=== PATIENT | female | born 1950 | race Caucasian/White ===

== ENCOUNTER → 2016-10-02 | Outpatient (CLI) | payer OTHER ==
[~2016-10-02] MED LIST: AMB5 PO; ATOR-22 PO; FAMO20TA12 PO; GADAVIST IV PRN
--- NOTE | 2016-10-02 08:51 | DIAGNOSTIC IMAGING REPORT ---
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 COMPARISON STUDY: MRI of the brain dated 07/27/2016. TECHNIQUE: MRI of the brain was performed utilizing various T1 and T2-weighted sequences in the axial, sagittal, and coronal planes. Contrast-enhanced sequences were acquired following the administration of 9 cc of Gadavist. FINDINGS: Brain parenchyma: There are age-related involutional changes noting mild patchy subcortical and periventricular microangiopathic disease. There is left parietal encephalomalacia, likely on a postoperative basis. This is similar to previous. There is no hemorrhage or mass effect. There is no restricted diffusion to suggest acute ischemia. No enhancing mass lesion is identified on the postcontrast images. The enhancing lesions seen within the cerebellum and the ventricles on 07/27/2016 have resolved. A small chronic lacunar infarct is noted in the right cerebellar hemisphere. No extra-axial fluid collection is seen. The cerebellar tonsils are normal in configuration. Ventricles, sulci, and cisterns: Prominent secondary to involutional change. Pituitary and sella: Unremarkable. Intracranial vasculature: Normal flow voids are maintained at the skull base. Orbits: The bony orbits are grossly intact. Orbital contents are normal in appearance. Sinuses and mastoids: A small retention cyst is noted in the right maxillary antrum. The paranasal sinuses are otherwise clear. The mastoid air cells are well pneumatized. Calvarium: There are changes from left-sided craniotomy. No destructive calvarial lesion is seen. Cervical cord: Partially visualized cervical spinal cord is normal in morphology and signal intensity. IMPRESSION: 1. Positive response to treatment. The enhancing lesions seen on 07/27/2016 have resolved. No enhancing intracranial mass is identified on today's examination. 2. Stable postoperative change in the left parietal lobe as compared to prior studies. 3. There is no hemorrhage or evidence of acute ischemia. Electronically signed by: Azeem Zhang M.D. 10/02/2016 8:50 AM Dictated Date/Time: 10/02/2016 8:42 AM
== END | disposition home or self-care (01) ==
LOC: C.MRI 07:26
PROVIDERS: ATTEND Internal Medicine Hematology
DX: C85.89 Other specified types of non-Hodgkin lymphoma, extranodal and solid organ sites (principal)

== ENCOUNTER → 2017-01-29 | Outpatient (CLI) | payer OTHER ==
--- NOTE | 2017-01-29 10:30 | DIAGNOSTIC IMAGING REPORT ---
MRI OF THE BRAIN COMBO CLINICAL HISTORY: Lymphoma. History of brain surgery. COMPARISON STUDY: MRI of the brain dated 10/02/2016. TECHNIQUE: MRI of the brain was performed utilizing various T1 and T2-weighted sequences in the axial, sagittal, and coronal planes. Contrast-enhanced sequences were acquired following the administration of 9 cc of Gadavist. FINDINGS: Brain parenchyma: There are age-related involutional changes noting mild patchy subcortical and periventricular microangiopathic disease. There is left parietal encephalomalacia, likely on a postoperative basis. This is similar to previous. There is no hemorrhage or mass effect. There is no restricted diffusion to suggest acute ischemia. No enhancing mass lesion is identified on the postcontrast images. A small chronic lacunar infarct is noted in the right cerebellar hemisphere. No extra-axial fluid collection is seen. The cerebellar tonsils are normal in configuration. Ventricles, sulci, and cisterns: Prominent secondary to involutional change. Pituitary and sella: Unremarkable. Intracranial vasculature: Normal flow voids are maintained at the skull base. Orbits: The bony orbits are grossly intact. Orbital contents are normal in appearance. Sinuses and mastoids: A small retention cyst is again noted in the right maxillary antrum. The paranasal sinuses are otherwise clear. The mastoid air cells are well pneumatized. Calvarium: There are changes from left-sided craniotomy. No destructive calvarial lesion is seen. Cervical cord: Partially visualized cervical spinal cord is normal in morphology and signal intensity. IMPRESSION: 1. No enhancing intracranial mass is identified on today's examination and there has been no significant change from 10/02/2016. 2. Stable postoperative change in the left parietal lobe as compared to prior studies. 3. There is no hemorrhage or evidence of acute ischemia. Electronically signed by: Azeem Zhang M.D. 01/29/2017 10:29 AM Dictated Date/Time: 01/29/2017 10:25 AM
== END | disposition home or self-care (01) ==
LOC: C.MRI 09:23
PROVIDERS: ATTEND Internal Medicine Hematology
DX: C85.89 Other specified types of non-Hodgkin lymphoma, extranodal and solid organ sites (principal)

== ENCOUNTER → 2017-02-08 | Outpatient (CLI) | payer OTHER ==
[~2017-02-08] MED LIST changes: -GADAVIST IV PRN
--- NOTE | 2017-02-08 13:49 | MAMMOGRAPHY REPORT ---
BILATERAL DIGITAL SCREENING MAMMOGRAM WITH CAD: 02/08/2017 CLINICAL HISTORY: Routine screening. Patient has no complaints. TECHNIQUE: Current study was also evaluated with a Computer Aided Detection (CAD) system. Bilateral CC and MLO views were obtained. COMPARISON: Comparison is made to exams dated: 02/08/2016 mammogram, 02/04/2015 mammogram, 01/21/2014 lety mogram, 01/20/2013 mammogram, 01/18/2012 mammogram, and 01/17/2011 mammogram - [facility]. BREAST COMPOSITION: There are scattered areas of fibroglandular density in both breasts. FINDINGS: No suspicious masses, calcifications, or areas of architectural distortion are noted in ei ther breast. There has been no significant interval change compared to prior exams. IMPRESSION: ACR BI-RADS CATEGORY 1: NEGATIVE There is no mammographic evidence of malignancy. A 1 year screening mammogram is recommended. The pa tient will receive written notification of the results. Approximately 10% of breast cancers are not detected with mammography. A negative mammographic report should not delay biopsy if a clinically suggestive mass is present. Helena Elkins M.D. /:02/08/2017 10:44:32 Preforming Machine Operator: Narda CAMPOVERDE(Maryann)(Michel)(BD), [facility] letter sent: Normal 1/2 BI-RADS Code: ACR BI-RADS Category 1: Negative
== END | disposition home or self-care (01) ==
LOC: C.MAMM 09:39
PROVIDERS: ATTEND Internal Medicine
DX: Z12.31 Encounter for screening mammogram for malignant neoplasm of breast (principal)

== ENCOUNTER → 2017-03-07 | Outpatient (CLI) | payer OTHER ==
[2017-03-07 13:21] LABS: HEMATOCRIT 37.8 % (37-47); MEAN CELL VOLUME 100.5 fL (80-100); MEAN CORPUSCULAR HEMOGLOBIN 33.5 pg (25-34); MEAN CORPUSCULAR HGB CONC 33.3 g/dl (32-36); MEAN PLATELET VOLUME 11.3 fL (7.4-10.4); PLATELET COUNT 249 K/uL (130-400); RED BLOOD COUNT 3.76 M/uL (4.2-5.4); WHITE BLOOD COUNT 3.89 K/uL (4.8-10.8)
[2017-03-07 13:23] LABS: BASO % 0.5 %; BASO ABS # 0.02 K/uL (0-0.2); COMPLETE YES; EOS % 3.6 %; IG% 0.3 %; LYMPH % 14.7 %; LYMPH ABS # 0.57 K/uL (1.2-3.4); MONO % 11.3 %; NEUT % 69.6 %
[2017-03-07 13:33] LABS: BLOOD UREA NITROGEN 12 mg/dl (7-18); GLUCOSE 100 mg/dl (70-99)
[2017-03-07 13:34] LABS: ALT/SGPT 16 U/L (12-78); AST/SGOT 19 U/L (15-37); BUN/CREATININE RATIO 13.3 (10-20); CALCIUM 9.4 mg/dl (8.5-10.1); CARBON DIOXIDE 27 mmol/L (21-32); CHLORIDE 108 mmol/L (98-107); CREATININE 0.91 mg/dl (0.60-1.20); HDL CHOLESTEROL 63 mg/dl; POTASSIUM 3.9 mmol/L (3.5-5.1); SODIUM 142 mmol/L (136-145)
[2017-03-07 13:36] LABS: ALB/GLOB RATIO 1.3 (0.9-2); ALKALINE PHOSPHATASE 120 U/L (45-117); CHOLESTEROL 163 mg/dl (0-200); CHOLESTEROL/HDL RATIO 2.6; TRIGLYCERIDES 127 mg/dl (0-150); VERY LOW DENSITY LIPOPROT CALC 25 mg/dl
== END | disposition home or self-care (01) ==
LOC: C.LABSPEC 12:39
PROVIDERS: ATTEND Internal Medicine
DX: Z00.00 Encounter for general adult medical examination without abnormal findings (principal); C85.89 Other specified types of non-Hodgkin lymphoma, extranodal and solid organ sites; E78.5 Hyperlipidemia, unspecified

== ENCOUNTER → 2017-05-23 | Outpatient (CLI) | payer OTHER ==
[2017-05-23 13:24] LABS: HEMATOCRIT 37.4 % (37-47); MEAN CORPUSCULAR HEMOGLOBIN 33.6 pg (25-34); MEAN CORPUSCULAR HGB CONC 32.6 g/dl (32-36); MEAN PLATELET VOLUME 10.4 fL (7.4-10.4); PLATELET COUNT 275 K/uL (130-400); RED BLOOD COUNT 3.63 M/uL (4.2-5.4); WHITE BLOOD COUNT 4.07 K/uL (4.8-10.8)
[2017-05-23 13:37] LABS: BASO % 0.2 %; BASO ABS # 0.01 K/uL (0-0.2); COMPLETE YES; EOS % 3.4 %; LYMPH % 15.2 %; LYMPH ABS # 0.62 K/uL (1.2-3.4); MONO % 8.6 %; NEUT % 72.6 %
== END | disposition home or self-care (01) ==
LOC: C.LABSPEC 12:21
PROVIDERS: ATTEND Internal Medicine
DX: C85.89 Other specified types of non-Hodgkin lymphoma, extranodal and solid organ sites (principal)

== ENCOUNTER → 2017-06-04 | Outpatient (CLI) | payer OTHER ==
[~2017-06-04] MED LIST changes: +GADAVIST IV PRN
--- NOTE | 2017-06-04 11:51 | DIAGNOSTIC IMAGING REPORT ---
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 Following the IV administration of 9 mL of Gadavist contrast, additional enhanced images were obtained. FINDINGS: Sagittal T1, axial diffusion, proton density and T2 weighted axial, coronal FLAIR, and pre and post axial T1-weighted images were acquired. These were supplemented with post gadolinium coronal T1 weighted images. There is a new enhancing 9 mm periventricular left occipital nodule. This must be viewed as suspicious for recurrent lymphoma. No additional enhancing lesions are visualized. Axial diffusion-weighted images reveal no evidence of acute or subacute infarction. There is no evidence of ventricular dilatation. Proton density T2-weighted and FLAIR images reveal moderate white matter edema within the left parietal lobe, in the area of prior surgery, and unchanged from the preceding examination. There is new vasogenic edema adjacent to the left periventricular occipital mass. There are scattered foci of increased T2 signal within the white matter likely a small vessel basis. This includes a lesion within the right medial occipital lobe. There are no abnormal flow voids. IMPRESSION: 1. New intensely enhancing 9 mm left occipital periventricular nodule with extensive surrounding vasogenic edema. This finding is viewed as suspicious for recurrent lymphoma. Electronically signed by: Damion Murillo M.D. 06/04/2017 11:50 AM Dictated Date/Time: 06/04/2017 11:42 AM
== END | disposition home or self-care (01) ==
LOC: C.MRI 10:03
PROVIDERS: ATTEND Internal Medicine Hematology
DX: C85.89 Other specified types of non-Hodgkin lymphoma, extranodal and solid organ sites (principal); G93.9 Disorder of brain, unspecified

== ENCOUNTER → 2017-09-10 | Outpatient (CLI) | payer OTHER ==
--- NOTE | 2017-09-10 09:38 | DIAGNOSTIC IMAGING REPORT ---
BRAIN COMBO CLINICAL HISTORY: PRIMARY CERAMIC PAINTER LYMPHOMA lymphoma COMPARISON STUDY: 06/04/2017 TECHNIQUE: Utilizing a 1.5 Mary Beth magnet and dedicated coil, multiplanar, multiecho imaging of the brain was performed pre and postcontrast administration. IV administration of 8.5 mL of Gadavist contrast was uneventful. FINDINGS: Mixed findings compared to the prior study. Enhancing left occipital nodule previous described has resolved. This running vasogenic edema has also resolved. There is interval development of a medial left temporal enhancing lesion measuring 11 x 7 mm. Immediately surrounding 3 mm nodular density is identified. Considerable localized vasogenic edema.. Chronic left parietal deep white matter edema unchanged from the prior study. No abnormal postcontrast enhancement at this site. There is a small focus of vasogenic edema medial right temporal lobe similar to slightly diminished as compared to the prior exam. IMPRESSION: 1. Mixed findings compared to the prior study. 2. Interval development of an enhancing left temporal lobe nodule measuring 11 x 7 mm. Considerable localized surrounding vasogenic edema.. 3. Interval resolution of the left occipital lesion 4. Chronic vasogenic edema medial right temporal lobe and left superior parietal lobe. The above report was generated using voice recognition software. It may contain grammatical, syntax or spelling errors. Electronically signed by: Damon Fontana M.D. 09/10/2017 9:37 AM Dictated Date/Time: 09/10/2017 9:22 AM
== END | disposition home or self-care (01) ==
LOC: C.MRI 08:34
PROVIDERS: ATTEND Internal Medicine Hematology
DX: C85.89 Other specified types of non-Hodgkin lymphoma, extranodal and solid organ sites (principal); G93.89 Other specified disorders of brain; G93.6 Cerebral edema

== ENCOUNTER → 2017-11-13 | Outpatient (CLI) | payer OTHER ==
[~2017-11-13] MED LIST changes: -AMB5 PO; +FAMO20TA11 PO; -FAMO20TA12 PO; -GADAVIST IV PRN; +LYR50 PO; +ONDA-170 PO; +SULF800T23 PO; +TEMO1CAP4 PO; +VALA500T60 PO
[2017-11-13 14:10] LABS: BASO % 0.2 %; BASO ABS # 0.01 K/uL (0-0.2); EOS % 0.9 %; EOS ABS # 0.04 K/uL (0-0.5); HEMATOCRIT 38.8 % (37-47); HEMOGLOBIN 12.9 g/dL (12.0-16.0); LYMPH % 15.8 %; LYMPH ABS # 0.71 K/uL (1.2-3.4); MEAN CELL VOLUME 105.1 fL (80-100); MEAN CORPUSCULAR HGB CONC 33.2 g/dl (32-36); MEAN PLATELET VOLUME 10.8 fL (7.4-10.4); MONO % 12.7 %; MONO ABS # 0.57 K/uL (0.11-0.59); NEUT % 70.4 %; NEUT ABS # 3.17 K/uL (1.4-6.5); PLATELET COUNT 266 K/uL (130-400); RED CELL DISTRIBUTION WIDTH CV 14.8 % (11.5-14.5); RED CELL DISTRIBUTION WIDTH SD 57.6 fL (36.4-46.3)
== END | disposition home or self-care (01) ==
LOC: C.LABSPEC 12:48
PROVIDERS: ATTEND Internal Medicine
DX: C85.89 Other specified types of non-Hodgkin lymphoma, extranodal and solid organ sites (principal)

== ENCOUNTER → 2017-11-13 | Outpatient (CLI) | payer OTHER ==
[~2017-11-13] MED LIST changes: +OPTIRAY 320 IV PRN
--- NOTE | 2017-11-13 15:59 | DIAGNOSTIC IMAGING REPORT ---
ABD/PELVIS IV AND ORAL CONT CLINICAL HISTORY: 67 years-old Female presenting with left lower quadrant pain, R/O DIVERTICULITIS. TECHNIQUE: Multidetector CT of the abdomen and pelvis was performed after the administration of oral and intravenous contrast. IV contrast: 93 mL of Optiray 320. A dose lowering technique was used consistent with the principles of ALARA (as low as reasonably achievable). COMPARISON: 10/01/2015. CT DOSE (mGy.cm): The estimated cumulative dose is 1078.85 mGycm. FINDINGS: Cutter Operator Tile topogram: Unremarkable. Lung bases: Lungs and pleural spaces clear. Normal heart size. No pericardial or pleural effusion. Fat-containing left Bochdalek hernias. Liver: Mildly macronodular contour of the liver with increased fat within the gallbladder fossa and fissure for the ligamentum teres. This could suggest a developing cirrhotic morphology. No focal lesion. Patent hepatic vasculature. Accessory right middle hepatic vein noted. Biliary: No intrahepatic or extrahepatic biliary ductal dilatation. Normal gallbladder. Pancreas: Mild prominence of the pancreatic duct with evidence of pancreas divisum. Mild parenchymal atrophy. Spleen: Normal. Adrenal glands: Normal. Kidneys and ureters: Numerous well-defined hypodensities in the kidneys, one of which demonstrates peripheral thin mural calcification in the right kidney. This minimally complex cyst measures 4.6 cm in diameter. The remainder of the cysts appear largely simple though a minimally complex cyst may also be present in the left kidney (series 3 image 149), measuring 5.4 cm. No hydronephrosis. Nonobstructing punctate calculus at the lower pole of the right kidney. Ureters normal. Bladder: Normal. Pelvic organs: Uterus surgically absent. Bowel: Diverticulosis of the sigmoid colon. No pericolonic fat infiltration. The appendix is normal. No bowel obstruction. Peritoneal cavity: No free fluid or intraperitoneal gas. Lymph nodes: No enlarged lymph nodes in the abdomen or pelvis. Vasculature: Atherosclerosis of the normal caliber abdominal aorta. IVC patent. Abdominal wall: Diastasis of the rectus abdominis. Musculoskeletal: Normal. IMPRESSION: 1. Diverticulosis without evidence of acute diverticulitis. No acute intra-abdominal pathology. 2. 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 No solid renal neoplasm or hemorrhagic or proteinaceous cyst. 3. Nonobstructing punctate right renal calculus. No hydronephrosis. 4. Macronodular contour of the liver with a morphology that could suggest developing fibrosis/cirrhosis. Electronically signed by: Grover Mederos M.D. 11/13/2017 3:58 PM Dictated Date/Time: 11/13/2017 3:51 PM
== END | disposition home or self-care (01) ==
LOC: C.CTS 13:39
PROVIDERS: ATTEND Internal Medicine
DX: R10.32 Left lower quadrant pain (principal); K11.7 Disturbances of salivary secretion; Q61.3 Polycystic kidney, unspecified; N20.0 Calculus of kidney; K76.89 Other specified diseases of liver

== ENCOUNTER → 2017-12-12 | Outpatient (CLI) | payer OTHER ==
[~2017-12-12] MED LIST changes: +GADAVIST IV PRN; -OPTIRAY 320 IV PRN
--- NOTE | 2017-12-12 13:02 | DIAGNOSTIC IMAGING REPORT ---
MRI OF THE BRAIN WITHOUT AND WITH IV CONTRAST CLINICAL HISTORY: INDUSTRIAL GAS FITTER LYMPHOMA RIGHT HAND NUMBNESS COMPARISON STUDY: 09/10/2017 TECHNIQUE: MRI of the brain was performed from the vertex to the skull base utilizing various T1 and T2 weighted sequences. Following the IV administration of 9.3 mL of Gadavist contrast, additional enhanced images were obtained. FINDINGS: Postsurgical changes are present within the left parietal lobe. There is persistent extensive white matter edema within the left parietal lobe unchanged from the preceding study. The previously identified left temporal white matter edema has resolved. There is a persistent 7 mm focus of white matter edema within the right temporal lobe. Axial diffusion-weighted images reveal no evidence of acute or subacute infarction. There is no evidence of ventricular dilatation. Proton density T2-weighted and FLAIR images reveal scattered foci of increased T2 signal within the white matter, likely on a small vessel basis, in addition to the above-mentioned areas of white matter edema. There are no abnormal flow voids. 11 mm focus of enhancement within the left temporal lobe is no longer evident. Equivocal foci of enhancement involving the anterior inferior aspect of the right cerebellum, likely represents partial volume averaging artifact. This is not confirmed on axial images. There is no pathologic T2 or FLAIR signal in this region. IMPRESSION: 1. Interval resolution of the left temporal lobe enhancing mass with resolution of the surrounding vasogenic edema 2. Stable foci of white matter edema involving the left parietal lobe and right temporal lobe. 3. No current evidence of a pathologic enhancing mass. 4. No evidence of acute or subacute infarction Electronically signed by: Damion Murillo M.D. 12/12/2017 1:00 PM Dictated Date/Time: 12/12/2017 12:54 PM
== END | disposition home or self-care (01) ==
LOC: C.MRI 11:19
PROVIDERS: ATTEND Internal Medicine Hematology
DX: C85.89 Other specified types of non-Hodgkin lymphoma, extranodal and solid organ sites (principal)

== ENCOUNTER → 2018-03-19 | Outpatient (CLI) | payer OTHER ==
[~2018-03-19] MED LIST changes: -LYR50 PO; -ONDA-170 PO; -TEMO1CAP4 PO
--- NOTE | 2018-03-19 13:44 | DIAGNOSTIC IMAGING REPORT ---
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 COMPARISON STUDY: MRI of the brain December 12, 2017. TECHNIQUE: Utilizing a 1.5 Mary Beth magnet and dedicated coil, multiplanar, multiecho imaging of the brain was performed pre and postcontrast administration. IV administration of 9 mL of Gadavist contrast was uneventful. Thin cut postcontrast imaging was performed with multiplanar reconstructions. FINDINGS: There are no foci of restricted diffusion to suggest acute infarct. Left temporoparietal craniotomy is noted. Ventricular system is stable. The basilar cisterns are patent. No extra-axial collections are present. Flow-voids for the major intracranial vessels are present. White matter T2 hyperintensity within the left frontoparietal region is unchanged as MRI December 12, 2017. Minimal signal abnormality within the anterior right temporal lobe is unchanged or slightly improved. No parenchymal enhancement is identified on this examination. No new foci of signal abnormality are present. No intracranial mass is identified. Flow-voids for the major intracranial vessels are present. Calvarial signal is unchanged. Orbits are unremarkable. Mild mucosal polypoid mucosal thickening of the sinuses is noted. IMPRESSION: No evidence for recurrent malignancy. No change since MRI of December 12, 2017 with stable parenchymal signal abnormality. No parenchymal enhancement or new foci of signal abnormality to suggest recurrent tumor. Electronically signed by: Ed Mora M.D. 03/19/2018 1:43 PM Dictated Date/Time: 03/19/2018 1:34 PM
== END | disposition home or self-care (01) ==
LOC: C.MRI 12:24
PROVIDERS: ATTEND Internal Medicine Hematology
DX: C85.89 Other specified types of non-Hodgkin lymphoma, extranodal and solid organ sites (principal)

== ENCOUNTER 2024-07-21 02:52 | Observation (INO) ==
--- OUTSIDE RECORDS SUMMARY | 2024-07-21 02:55 | External Medical Summary | Summary of Care ---
Author Name Unknown Organization [facility] Address [address] [place] [address] Phone [phone] Care Team Providers Care Customer Quality Engineer Name Role Phone Cuca Calderon DO Primary Care Provider [phone] Reason for Visit * Reason Comments Follow Up Encounter Details Date Type Department Care Team (Late st Contact Info) Description 07/18/2024 8:40 AM EST Office Visit Family Practice [address] [place] [phone] Cuca Calderon DO [address] [place] [address] Right leg swelling*; Primary CORRECTIONS CORPORAL lymphoma Allergies Active Allergy Reactions Criticality Noted Date Comments Oxycodone Medium 03/12/2023 vomiting documented as of this encounter (statuses as of 07/18/2024) Medications Calcium 1000 + D 1000-20 MG-MCG Oral Tablet (Calcium Carb-Cholecalcifero l) Take 1 Tablet by mouth daily. Active Atorvastatin Calcium 20 MG Oral Tablet (Lipitor)Indication s:Dyslipidemia TAKE ONE TABLET BY MOUTH EVERY MORNING 90 Tablet 3 06/05/2024 6:25 PM EDT 4 09/11/19 25 Active Advil Dual Action 125-250 MG Oral Tablet (Ibuprofen-Acetamin ophen) Take 2 Tablets by mouth daily as needed for Pain. Active Omeprazole 20 MG Oral Capsule Delayed Release (PriLOSEC)Indicatio ns:Gastroesophageal reflux disease without esophagitis TAKE ONE CAPSULE BY MOUTH EVERY MORNING ONE HOUR BEFORE THE FIRST MEAL OF THE DAY 90 Capsule 3 07/14/2024 10:03 AM EST 4 01/16/20 Active Celecoxib 200 MG Oral Capsule (CeleBREX)Indicatio ns:Nontraumatic tear of left rotator cuff, unspecified tear extent,Trochanteric bursitis of right hip,Generalized osteoarthritis Take 1 Capsule by mouth in the morning. 90 Capsule 2 07/07/2024 12:41 PM EST 4 Active documented as of this encounter (statuses as of 07/18/2024) Active Problems Problem Noted Date Diagnosed Date Gastroesophageal reflux disease without esophagi tis 05/08/2023 Overweight (BMI 25.0-29.9) 05/08/2023 Prediabetes 03/12/2023 Age-related osteoporosis wit hout current pathological fracture 03/10/2022 Generalized osteoarthritis 09/08/2021 Primary CORRECTIONS CORPORAL lymphoma 07/29/2016 Dyslipidemia documented as of this encounter (statuses as of 07/18/2024) Resolved Problems Problem Noted Date Diagnosed Date Resolved Date Malignant neoplasm of brain 09/11/2022 05/08/2023 Leg edema, right 09/08/2021 05/08/2023 Nontraumatic tear of left rotator cuff 09/08/2021 05/08/2023 Trochanteric bursitis of right hip 09/08/2021 05/08/2023 Encounter for antineoplastic chemotherapy 08/04/2016 05/08/2023 documented as of this encounter (statuses as of 07/18/2024) Immunizations Name Administration Dates Next Due COVID-19 mRNA, LNP-s, No Pre serve, 2-Dose Series (Moderna) 10/12/2020,09/11/2020 COVID-19, MRNA-LNP, PF, 50 M CG/0.5 mL, 12 YRS AND ABOVE, IM (MODERNA-Spikevax) 05/26/2023 COVID-19, mRNA, LNP-s, PF, B ooster, 100mcg/0.5mg (Moderna) 03/10/2022,05/31/2021 Pneumococcal Conjugate Vaccine, 20-valent (Prevn ar20) 09/11/2022 RSV Vac., Bivalent, Perfusion F, Pf,0.5 Ml (Abry svo) 11/12/2023 Seasonal Influenza Virus Vac cine, Unspecified Formulation 05/27/2021 Seasonal Influenza, High Dos e, Trivalent, PF, IM (Fluzone HD) 05/13/2024 Seasonal Influenza, Quadrivalent Hd (Fluzone Hd) 05/09/2023,05/12/2022 TDAP (age 10 and older)(Boostrix) 09/11/2022 Zoster Vaccine Recombinant (Shingrix) 01/03/2023 ,09/21/2022 documented as of this encounter Social History Tobacco Use Types Packs/Day Years Used Date Smoking Tobacco: Former Smokeless Tobacco: Never Tobacco Cessation:Counseling Given: Yes Comments:Quit smoking in 1991 Alcohol Use Standard Drinks/Week Comments No 0 (1 standard drink = 0.6 oz pur e alcohol) PHQ-2 Answer Date Recorded PHQ Adult Total Score 0 03/18/2024 Hunger Vital Sign Answer Date Recorded Within the past 12 months, y ou worried that your food would run out before you got the money to buy more. Never true 11/12/19 24 Within the past 12 months, t he food you bought just didn't last and you didn't have money to get more. Never true 11/12/2023 Childcare Answer Date Recorded Do you feel overwhelmed with taking care of a child, family member or friend? No 11/12/2023 Does your family need help f inding childcare? (Household - for ages 0-17 years) Not on file 11/12/2023 Clothing Answer Date Recorded Have you been unable to get clothing when it was really needed? No 11/12/2023 Is your family able to get c lothes or diapers when needed? (Household - for ages 0-17 years) Not on file 11/12/2023 Personal Safety Answer Date Recorded Do you feel unsafe or have concerns for your saf ety? No 11/12/2023 Do you have concerns for you r family's safety? (Household - for ages 0-17 years) Not on file 11/12/2023 Utilities Answer Date Recorded Do you have trouble paying y our heating, water, or electric bill? No 11/12/2023 Is your family able to pay t he heat, water, or electric bill? (Household - for ages 0-17 years) Not on file 11/12/2023 Does your family have access to good internet? (Household - for ages 0-17 years) Not on file 11/12/2023 Employment Status Answer Date Recorded Are you unemployed or without regular income? No 11/12/2023 Does the household have a re gular source of income? (Household - for ages 0-17 years) Not on file 11/12/2023 Social Connections Answer Date Recorded How often do you feel lonely or isolated from th ose around you? Never 11/12/2023 Financial Resource Strain Answer Date R ecorded Do you have any trouble payi ng for your medications, or do you think you might in the future? No 11/12/2023 Does your family have troubl e paying for medicine? (Household - for ages 0-17 years) Not on file 11/12/2023 Transportation Needs Answer Date Record ed READ ONLY Do you have troubl e getting a ride to medical visits or work? Never True 11/12/2023 Does your family have a hard time getting a ride to doctors visits? (Household - for ages 0-17 years) Not on file 11/12/2023 Has lack of transportation k ept you from medical appointments, meetings, work, or from getting things needed for daily living? Check all that apply. (Adult - for ages 18 years and over) Not on file 11/12/2023 Do you (or your family) have trouble finding or paying for a ride (transportation)? (Household - for ages 0-17 years) Not on file 11/12/2023 Housing Stability Answer Date Recorded Do you currently live in a s helter or have no steady place to sleep at night? No 11/12/2023 READ ONLY Do you think you a re at risk of becoming homeless? No 11/12/2023 Does your family worry about paying for your home or becoming homeless? (Household - for ages 0-17 years) Not on file 0 11/12/2023 Are you homeless or worried that you might be in the future? (Adult - for ages 18 years and over) Not on file Are you (or your family) олег eless or worried that you might be in the future? (Household - for ages 0-17 years) Not on file Food Insecurity Answer Date Recorded Do you need food for this week? No 11/12/2023 Are you able to get enough f ood for your family? (Household - for ages 0-17 years) Not on file 11/12/2023 Does your family need food t his week? (Household - for ages 0-17 years) Not on file 11/12/2023 Do you always have enough fo od for your family? (Household - for ages 0-17 years) Not on file 11/12/2023 Comments No Sex and Gender Information Value Date Recorded Sex Assigned at Female 03/10/2022 8:48 AM EDT Legal Sex Female 6:00 AM EST Gender Identity Female 03/10/2022 8:48 AM EDT Sexual Orientation Straight 03/10/2022 8: 48 AM EDT documented as of this encounter Last Filed Vital Signs Vital Sign Reading Time Taken Comments Blood Pressure 124/80 07/18/2024 8:29 AM EST Pulse 70 07/18/2024 8:29 AM EST Temperature 36.9 C (98.4 F) 07/18/2024 8:29 AM ES T Respiratory Rate 14 07/18/2024 8:29 AM EST Oxygen Saturation 98% 07/18/2024 8:29 AM EST Inhaled Oxygen Concentration - - Weight 71.5 kg (157 lb 9.6 oz) 07/18/2024 8:29 A M EST Height 168.9 cm (5' 6.5") 07/18/2024 8:29 AM EST Body Mass Index 25.06 07/18/2024 8:29 AM EST documented in this encounter Progress Notes * Cuca Calderon, DO - 07/18/2024 8:24 AM EST SUBJECTIVE: Chief Complaint Patient presents with Follow Up HPI: Jeanine Hoyos is a 73 year old female who presents today for regular return. Pt notes that she has had some right foot swelling. This has gone on for several weeks. She states that she wokeup with it that way. If she can elevate her leg, it will go down some. No injury. Her left leg doesnot swell. She states that the right leg did not work well when she had brain cancer. Pt notes no other concerns today. She feels she is doing well. PHM: Patient Active Problem List Diagnosis Dyslipidemia Primary CORRECTIONS CORPORAL lymphoma Generalized osteoarthritis Age-related osteoporosis without current pathological fracture Prediabetes Gastroesophageal reflux disease without esophagitis Overweight (BMI 25.0-29.9) Current Outpatient Medications Medication Sig Dispense Refill Calcium 1000 + D 1000-20 MG-MCG Oral Tablet (Calcium Carb-Cholecalciferol) Take 1 Tablet by mouth daily. Atorvastatin Calcium 20 MG Oral Tablet (Lipitor) TAKE ONE TABLET BY MOUTH EVERY MORNING 90 Tablet 3 Advil Dual Action 125-250 MG Oral Tablet (Ibuprofen-Acetaminophen) Take 2 Tablets by mouth daily asneeded for Pain. Omeprazole 20 MG Oral Capsule Delayed Release (PriLOSEC) TAKE ONE CAPSULE BY MOUTH EVERY MORNING ONE HOUR BEFORE THE FIRST MEAL OF THE DAY 90 Capsule 3 Celecoxib 200 MG Oral Capsule (CeleBREX) Take 1 Capsule by mouth in the morning. 90 Capsule 2 No current facility-administered medications for this visit. Past Medical History: Diagnosis Date CORRECTIONS CORPORAL lymphoma Gastroesophageal reflux disease without esophagitis 05/08/2023 Overweight (BMI 25.0-29.9) 05/08/2023 Past Surgical History: Procedure Laterality Date COLONOSCOPY W/ BIOPSY (RECTUM) 06/06/2008 bx taken, proctitis, diverticulosis COLONOSCOPY, DIAGNOSTIC (RECTUM) 11/23/2021 diverticulosis, repeat 5 yrs / COLONOSCOPY FLEXIBLE PROXIMAL DIAGNOSTIC performed by [facility] ENDOSCOPY [facility] CRANIECTOMY/CRANIOTOMY EXPL SUPRATENTORIAL CORRECTIONS CORPORAL lymphoma REMOVAL OF OVARY(S) 08/06/1991 Oopherectomy,Uni/Bilat REPAIR INITIAL INCISIONAL OR VENTRAL HERNIA; REDUCIBLE 3-4 times TOTAL HYSTERECTOMY 08/06/1991 endometriosis, fibroids Review of patient's allergies indicates: Allergen Reactions Oxycodone vomiting Family History Problem Relation Name Age of Onset Cancer Mother cervical cancer Heart Disorder Father Thyroid Disorder Sister Thyroid Disorder Sister Heart Disorder Brother of an [place] at age 41 Heart Disorder Brother Diabetes Grandmother (Paternal) Cancer Aunt (Unspecified) breast cancer maternal aunt Family Status Relation Status Mo at age 45 cancer Fa at age 60 [place] Sis Alive Sis Alive Sis Alive Sis Alive Sis Alive Sis Alive Bro (Not Specified) Bro Alive Bro Alive Bro Alive PGMA (Not Specified) AUNT (Not Specified) Son Alive Son Alive Social History Tobacco Use Smoking status: Former Smokeless tobacco: Never Tobacco comments: Quit smoking in 1991 Substance Use Topics Alcohol use: No Vaping/E-Cigarette Use Vaping/E-Cigarette Substances Vaping/E-Cigarette Devices REVIEW OF SYSTEMS: Review of Systems Constitutional: Negative for chills, fatigue, fever and unexpected weight change. Respiratory: Negative for cough, chest tightness, shortness of breath and wheezing. Cardiovascular: Negative for chest pain, palpitations and leg swelling. Gastrointestinal: Negative for abdominal pain, constipation, diarrhea, nausea and vomiting. Musculoskeletal: Negative for arthralgias, gait problem and joint swelling. Skin: Negative for color change, pallor and rash. OBJECTIVE: BP 124/80 | Pulse 70 | Temp 98.4 F (36.9 C) | Resp 14 | Ht 5' 6.5" (1.689 m) | Wt 157 lb 9.6 oz(71.5 kg) | SpO2 98% | BMI 25.06 kg/m | BSA 1.83 m PHYSICAL EXAM: Physical Exam Constitutional: General: She is not in acute distress. Appearance: She is well-developed. Cardiovascular: Rate and Rhythm: Normal rate and regular rhythm. Heart sounds: Normal heart sounds. No murmur heard. No friction rub. No gallop. Pulmonary: Effort: Pulmonary effort is normal. No respiratory distress. Breath sounds: Normal breath sounds. No wheezing or rales. Abdominal: General: Bowel sounds are normal. There is no distension. Palpations: Abdomen is soft. Tenderness: There is no abdominal tenderness. There is no guarding. Musculoskeletal: General: No tenderness or deformity. Normal range of motion. Right lower leg: Edema (+2 pitting from foot to mid sommers) present. Left lower leg: No edema. Skin: General: Skin is warm and dry. Coloration: Skin is not pale. Findings: No erythema or rash. Neurological: Mental Status: She is alert and oriented to person, place, and time. ASSESSMENT/PLAN: (M79.89) Right leg swelling (primary encounter diagnosis) Plan: VASC DUPLEX VENOUS LE UNILAT Pt will complete doppler to r/o clot. Consider compression hose pending. Echo and labs ok previously. (C83.390) Primary CORRECTIONS CORPORAL lymphoma Plan: Pt doing well presently. Continues to follow with oncology. Follow-up: 3 months Total time today including reviewing chart before the visit, pertinent labs, imaging reports, face to face time, and documentation time was 33 minutes. Cuca Calderon DO documented in this encounter Nursing Notes * Alla Ackerman LPN - 07/18/2024 8:27 AM EST Right lower leg swelling, no trauma. documented in this encounter Plan of Treatment Upcoming Encounters Date Type Department Care Team (Late st Contact Info) Description 07/18/2024 2:00 PM EST Imaging Radiology [facility] [address] [facility] [place] [address] 11/21/2024 10:00 AM EDT Office Visit Family Practice [address] [place] [address] [address] [facility] [place] [address] Cuca Calderon DO [address] [facility] [address] 05/13/2025 1:30 PM EDT Office Visit Hematology/Oncology [facility] [address] [place] [phone] Sekou Nash MD [address] [place] [address] Scheduled Orders Name Type Priority Associated Diagnoses Orde r Schedule VASC DUPLEX VENOUS LE UNILAT Medical Imaging STAT Right leg swelling Ordered: 07/18/2024 Scheduled Procedures Name Priority Associated Diagnoses Date/Ti me COLONOSCOPY FLEXIBLE PROXIMAL DIAGNOSTIC Recall Screen for colon cancer Health Maintenance Due Date Last Done Comments Cologuard 1994 Sigmoidoscopy 1994 Fecal Occult Blood Test 11/02/2000 11/03/1999 Adult Wellness Visit 2015 *BISPHONATE OR OTHER ACCEPTABLE MEDICATION NEEDED FOR OSTEOPOROSIS (REFER TO SMARTSET #1146) 03/13/2022 COVID-19 Vaccine ( season) 2024 05/26/2023, 03/10/2022, 05/31/2021, Additional history exists Postponed from 04/06/2024 (Patient Declined After Education) Depression Screening 03/18/2025 03/18/2024 HbA1c 03/18/2025 03/18/2024, 080 08/2022, 07/14/2020 Mammogram 03/31/2025 03/31/2024, 2 01/2024, 02/19/2023, Additional history exists DXA Scan 03/18/2026 03/18/2024, 0 01/2022, 11/09/2021 Colonoscopy 11/23/2026 11/23/2021, 11/05, 06/22/2008 Colorectal Cancer Screening 11/23/2026 Lipid Panel 03/18/2029 03/18/2024, 08/2022, 03/06/2022, Additional history exists DTap/Tdap Vaccines (2 - Td or Tdap) 09/11/2032 09/11/2022 RETIRED - COLONOSCOPY-EVERY 5 YRS AGES 18-100 Discontinued 11/23/2021, 11/23/2021, 06/22/2008 Pneumococcal Vaccine: 65+ Years Completed 09/11/2022 Zoster Vaccines Completed 01/03/2023, 09/21/2022 VITAMIN D LEVEL ONCE IN A LIFETIME-USE SMARTSET# [id number] Completed 03/18/2024, 09/06/2022 Influenza Vaccine (FLU shot) Completed 05/13/2024, 05/09/2023, 05/12/2022, Additional history exists HPV (Gardasil) Vaccine Aged Out No lo nger eligible based on patient's age to complete this topic Hepatitis B Vaccine Aged Out No longe r eligible based on patient's age to complete this topic MENINGOCOCCAL (MENACTRA/MENVEO) Aged Out No longer eligible based on patient's age to complete this topic documented as of this encounter Medical Devices Not on filedocumented as of this encounter Visit Diagnoses Diagnosis Right leg swelling- Primary 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
--- OUTSIDE RECORDS SUMMARY | 2024-07-21 02:55 | External Medical Summary | Summary of Care ---
Author Name Unknown Organization [facility] Address [address] [facility] [place] [address] Phone [phone] Care Team Providers Care Public Health Dietitian Name Role Phone Yumiko Cuca Pearson DO Primary Care Provider + [phone] Reason for Visit * Reason Comments Medication Refill Encounter Details Date Type Department Care Team (Late st Contact Info) Description 07/04/2024 Refill Family Practice [facility] [address] [facility] [place] [address] Preet Lynne DO [address] [place] [phone] Nontraumatic tear of left rotator cuff, unspecified tear extent; Trochanteric bursitis of right hip; Generalized osteoarthritis Allergies Active Allergy Reactions Criticality Noted Date Comments Oxycodone Medium 03/12/2023 vomiting documented as of this encounter (statuses as of 07/05/2024) Medications Calcium 1000 + D 1000-20 MG-MCG Oral Tablet (Calcium Carb-Cholecalcifer ol) Take 1 Tablet by mouth daily. Active Atorvastatin Calcium 20 MG Oral Tablet (Lipitor)Indicatio ns:Dyslipidemia TAKE ONE TABLET BY MOUTH EVERY MORNING 90 Tablet 3 06/05/2024 6:25 PM EDT 4 09/11/19 25 Active Advil Dual Action 125-250 MG Oral Tablet (Ibuprofen-Acetami nophen) Take 2 Tablets by mouth daily as needed for Pain. Active Omeprazole 20 MG Oral Capsule Delayed Release (PriLOSEC)Indicati ons:Gastroesophage al reflux disease without esophagitis TAKE ONE CAPSULE BY MOUTH EVERY MORNING ONE HOUR BEFORE THE FIRST MEAL OF THE DAY 90 Capsule 3 04/14/2024 1:12 PM EDT 4 01/16/20 25 Active Celecoxib 200 MG Oral Capsule (CeleBREX)Indicati ons:Nontraumatic tear of left rotator cuff, unspecified tear extent,Trochanteri c bursitis of right hip,Generalized osteoarthritis Take 1 Capsule by mouth in the morning. 90 Capsule 2 4 Active Celecoxib 200 MG Oral Capsule (CeleBREX)Indicati ons:Nontraumatic tear of left rotator cuff, unspecified tear extent,Trochanteri c bursitis of right hip,Generalized osteoarthritis Take 1 Capsule by mouth in the morning. 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 lymphoma 07/29/2016 Dyslipidemia documented as of this encounter (statuses as of 07/05/2024) Resolved Problems Problem Noted Date Diagnosed Date Resolved Date Malignant neoplasm of brain 09/11/2022 05/08/2023 Leg edema, right 09/08/2021 05/08/2023 Nontraumatic tear of left rotator cuff 09/08/2021 05/08/2023 Trochanteric bursitis of right hip 09/08/2021 05/08/2023 Encounter for antineoplastic chemotherapy 08/04/2016 05/08/2023 documented as of this encounter (statuses as of 07/05/2024) Immunizations Name Administration Dates Next Due COVID-19 [...] Date Smoking Tobacco: Former Smokeless Tobacco: Never Comments:Quit smoking in 199 2 Alcohol Use Standard Drinks/Week Comments No 0 [...] AM EDT documented as of this encounter Miscellaneous Notes * Telephone Encounter - Grover Hamilton RPh - 07/05/2024 2:29 PM EST Signed Prescriptions: Disp Refills Celecoxib 200 MG Oral Capsule (CeleBREX) 90 Cap*2 Sig: Take 1 Capsule by mouth in the morning.Authorizing Provider: Manfred LYNNE User: GROVER HMAILTON documented in this encounter Plan of Treatment Upcoming Encounters Date Type Department Care Team (Late st Contact Info) Description 07/18/2024 8:40 AM EST Office Visit Family Practice [address] [place] [address] [place] [phone] Cuca Calderon DO [address] [place] [address] 05/13/2025 1:30 PM EDT Office Visit Hematology/[facility] [place] [address] [place] [phone] Sekou Nash MD [address] [facility] [address] Scheduled Procedures Name Priority Associated Diagnoses Date/Ti me COLONOSCOPY FLEXIBLE PROXIMAL DIAGNOSTIC Recall Screen for colon cancer Health Maintenance Due Date Last Done Comments Cologuard 1994 Sigmoidoscopy 1994 Fecal Occult Blood Test 11/02/2000 11/03/1999 Adult Wellness Visit 2015 *BISPHONATE OR OTHER ACCEPTABLE MEDICATION NEEDED FOR OSTEOPOROSIS (REFER TO SMARTSET #1146) 03/13/2022 COVID-19 Vaccine ( season) 2024 05/26/2023, 03/10/2022, 05/31/2021, Additional history exists Depression Screening 03/18/2025 03/18/2024 HbA1c 03/18/2025 03/18/2024, 08/2022, 07/14/2020 Mammogram 03/31/2025 03/31/2024, 03/07, 02/19/2023, Additional history exists DXA Scan 03/18/2026 03/18/2024, 0 01/2022, 11/09/2021 Colonoscopy 11/23/2026 11/23/2021, 11/05, 06/22/2008 Colorectal Cancer Screening 11/23/2026 Lipid Panel 03/18/2029 03/18/2024, 0208/2022, 03/06/2022, Additional history exists DTap/Tdap Vaccines (2 - Td or Tdap) 09/11/2032 09/11/2022 RETIRED - COLONOSCOPY-EVERY 5 YRS AGES 18-100 Discontinued 11/23/2021, 11/23/2021, 06/22/2008 Pneumococcal Vaccine: 65+ Years Completed 09/11/2022 Zoster Vaccines Completed 01/03/2023, 09/21/2022 VITAMIN D LEVEL ONCE IN A LIFETIME-USE SMARTSET# [id number] Completed 03/18/2024, 09/06/2022 Influenza Vaccine (FLU shot) [...] as of this encounter Visit Diagnoses Diagnosis Nontraumatic tear of left rotator cuff, unspecified tear extent Trochanteric bursitis of right hip Enthesopathy of hip region Generalized osteoarthritis Generalized osteoarthrosis, unspecified site documented in this encounter Care Teams Public Health Dietitian Relationship Specialty Start Date End Date Cuca Calderon DO [address] [place] [address] PCP - General Family Medicine 03/15/24 documented as of this encounter
[2024-07-21] MEDS: OXYMETAZOLINE 0.05% 30 ML BTL ONE ×2 (03:20→13:30)
[2024-07-21] MEDS: TXA 10% Non-IV Routes 100 MG/ML VIAL ONE (03:20)
[2024-07-21] MEDS: TXA 10% Non-IV Routes 100 MG/ML VIAL TOP ONE (03:33)
[2024-07-21 03:45] LABS: Basophils # (auto) 0.05 K/uL (0.00-0.20); Basophils % (auto) 1.1 %; Eosinophils % (auto) 2.2 %; Hematocrit (blood only) 37.4 % (37.0-47.0); Hemoglobin 12.3 g/dl (12.0-16.0); Immature Granulocytes # (auto) 0.02 K/uL (0.01-0.20); Immature Granulocytes % (auto) 0.4 %; Lymphocytes # (auto) 1.36 K/uL (1.20-3.40); Lymphocytes % (auto) 30.2 %; Mean Corpuscular Hemoglobin 31.3 pg (25.0-34.0); Mean Corpuscular Hgb Conc 32.9 g/dL (32.0-36.0); Mean Corpuscular Volume 95.2 fL (80.0-100.0); Mean Platelet Volume 9.9 fL (9.4-12.4); Monocytes % (auto) 11.1 %; Neutrophils # (auto) 2.48 K/uL (1.40-6.50); Platelet Count 265 K/uL (130-400); RDW Coefficient of Variation 13.5 % (11.5-14.5); RDW Standard Deviation 47.8 fL (36.4-46.3); Red Blood Count 3.93 M/uL (4.20-5.40); White Blood Count 4.51 K/ul (4.8-10.8)
--- NOTE | 2024-07-21 05:27 | Emergency Department Note ---
Impression & Plan Acute posterior epistaxis admit to the [facility] ED Provider Note NAME: LEONILA HENNESSY AGE: 73 SEX: Female INFORMANT: Patient ED PROVIDER(S): Lilia Dubon DO CHIEF COMPLAINT: Nosebleed PLAN: Disposition: the patient will be admitted to the [facility] will go to the OR with ENT later today MEDICAL DECISION MAKING: this is a 73-year-old female patient who presents to the emergency department with a nosebleed. The patient was started on Eliquis 3 days ago for a blood clot in her right lower extremity. The patient awoke from sleep with blood all over her pillow tonight. the patient has had minor nosebleeds in the past but this was much more severe. H&H were stable. I made multiple attempts to gain control of the bleeding in the patient's left nares including Afrin nasal spray, external pressure, atomized TXA, and a rapid Rhino device with no success. I consulted with from ENT and he presented to the emergency department to evaluate the patient. Care/management discussed with: Dr. Tyler - ENT Triage Nursing notes: reviewed and agree With them. Vital Signs: reviewed and remarkable for hypertension and tachycardia Additional History obtained from: the patient's who is at the bedside HPI: 73 year old Female arrives for evaluation of Nosebleed. patient awoke from sleep feeling as if her pillow was soaked. She realized that there was a significant amount of blood coming from her left nares.. PAST MEDICAL HISTORY: See Below, PAST SURGICAL HISTORY: See Below, SOCIAL HISTORY: See Below, HOME MEDICATIONS: see list ALLERGIES: see list VITALS: See Below PHYSICAL EXAMINATION: HEENT: Head - normocephalic and atraumatic. Pupils are equal, round, and reactive to light. Extraocular eye muscles are intact, and sclera are anicteric. Nose - Significant blood coming from the left nares. I could not localize where the blood was coming from. Mouth-moderate blood within the posterior oropharynx Neck: Supple; no JVD or cervical lymphadenopathy Heart: Regular rate and rhythm. There is a normal S1 and S2 with no murmurs, clicks, or gallops appreciated. Lungs: Clear to auscultation bilaterally with no wheezes, rales, or rhonchi. Abdomen: Soft, completely nontender, nondistended, with good bowel sounds. There are no palpable pulsatile masses or hepatosplenomegaly. There is no guarding, rigidity, or rebound noted. Extremities: Edema to the right lower extremity. Skin: warm and dry with good turgor and no rashes. Emergency Department course: The patient was evaluated in room A-2. A complete history and physical was performed. Initially, I had the patient clear her nose of all clots and I held direct pressure. This provided no control of the bleeding. I used 4 sprays of Afrin nasal spray to the left nares and again held pressure for some time with very little control to the bleeding. Once again, the patient and cleared her nose and posterior oropharynx of clots by gargling water. I used atomized TXA. And held pressure for more extended period of time to the left nares. Patient continued to produce significant bleeding into the posterior oropharynx and expelled it from her mouth. An IV lock was initiated and labs were drawn as above. Bleeding was still not controlled and I placed a 5.5 cm rapid Rhino in the left nares. This did seem to provide control to the bleeding for a short period of time but then blood returned to the posterior oropharynx. Blood was also oozing from around the rapid Rhino. I discussed the case with the on-call ENT provider and they will evaluate the patient here in the emergency department. Dr. Tyler evaluated the patient here in room A-2 and will take the patient to the OR this afternoon. He requested that the patient be evaluated/admitted by the [facility]. I discussed the case with him. 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) Neutropenic fever (Acute) Thrombocytopenia (Acute) Social History Smoking Status: Never smoker Preferred Language: [place] Beliefs That Will Affect Care: None Feels Safe at Home: Yes Allergies Allergies Allergy/AdvReac Type Severity Reaction Status Date / Time oxycodone AdvReac Mild VOMITING - Verified 06/23/24 09:42 Percocet Home Meds Home Medications Medication Instructions Recorded Confirmed omeprazole 20 mg capsule,delayed 20 mg PO DAILY 01/17/22 07/21/24 release celecoxib 50 mg capsule (Celebrex) 50 mg PO BID PRN pain 06/12/22 07/21/24 apixaban 5 mg tablet (Eliquis) 10 mg PO BID 07/21/24 07/21/24 atorvastatin 20 mg tablet 20 mg PO DAILY 07/21/24 07/21/24 Results & Data (ED) Vital Signs Vital Signs - 24 hr 07/21/24 02:53 07/21/24 03:33 07/21/24 04:00 Temperature 36.9 C Temperature Source Temporal Artery Scan Pulse Rate 123 H Pulse Rate [Apical] 100 H 84 Pulse Rhythm Regular Respiratory Rate 18 16 17 Respiratory Effort / Characteristics Non-Labored Respiratory Depth Normal Blood Pressure 135/87 Blood Pressure [Right Arm] 149/101 H 147/112 H Blood Pressure Mean 103 Blood Pressure Mean [Right Arm] 117 123 Pulse Oximetry 96 95 96 Oxygen Delivery Method Room Air Room Air Sepsis Recent Fever Within 48 Hours No Sepsis New/Unexplained Change in Mental Status No Sepsis Action Taken by Nursing No Action Required 07/21/24 04:30 07/21/24 06:00 Temperature Temperature Source Pulse Rate Pulse Rate [Apical] 89 103 H Pulse Rhythm Respiratory Rate 16 19 Respiratory Effort / Characteristics Respiratory Depth Blood Pressure Blood Pressure [Right Arm] 169/99 H 138/107 H Blood Pressure Mean Blood Pressure Mean [Right Arm] 122 117 Pulse Oximetry 97 96 Oxygen Delivery Method Room Air Room Air Sepsis Recent Fever Within 48 Hours Sepsis New/Unexplained Change in Mental Status Sepsis Action Taken by Nursing Laboratory Data 07/21/24 03:18 07/21/24 03:18 Lab Results 07/21/24 Range/Units 03:18 WBC 4.51 L (4.8-10.8) K/ul RBC 3.93 L (4.20-5.40) M/uL Hgb 12.3 (12.0-16.0) g/dl Hct 37.4 (37.0-47.0) % MCV 95.2 (80.0-100.0) fL MCH 31.3 (25.0-34.0) pg MCHC 32.9 (32.0-36.0) g/dL RDW Std Deviation 47.8 H (36.4-46.3) fL RDW Coeff of Pascual 13.5 (11.5-14.5) % Plt Count 265 (130-400) K/uL MPV 9.9 (9.4-12.4) fL Immature Gran % (Auto) 0.4 % Neut % (Auto) 55.0 % Lymph % (Auto) 30.2 % [place] % (Auto) 11.1 % Eos % (Auto) 2.2 % Baso % (Auto) 1.1 % Neut # (Auto) 2.48 (1.40-6.50) K/uL Lymph # (Auto) 1.36 (1.20-3.40) K/uL [place] # (Auto) 0.50 (0.11-0.59) K/uL Eos # (Auto) 0.10 (0.00-0.50) K/uL Baso # (Auto) 0.05 (0.00-0.20) K/uL Immature Gran # (Auto) 0.02 (0.01-0.20) K/uL PT 10.9 (9.0-12.0) Seconds INR 1.0 (0.9-1.1) APTT 27 (21-31) Seconds PTT Ratio 1.0 Sodium 142 (136-145) mmol/L Potassium 4.0 (3.5-5.1) mmol/L Chloride 107 (98-107) mmol/L Carbon Dioxide 26 (21-32) mmol/L Anion Gap 9 (3-11) BUN 16 (6-23) mg/dl Creatinine 0.81 (0.6-1.2) mg/dl Est Cr Clr Drug Dosing 57.0 ml/min eGFR 76.13 BUN/Creatinine Ratio 19.8 (10-20) Glucose 111 H (70-99(Fasting)) mg/dl Calcium 9.2 (8.6-10.3) mg/dl Magnesium 2.1 (1.7-2.4) mg/dl Administered Medications Discontinued Medications Gelatin (Gelatin Sponge 12-7mm) Confirm Administered Dose 1 each .ROUTE .STK-MED ONE Stop: 07/21/24 05:39 Last Admin: 07/21/24 06:43 Dose: Not Given Documented By: EMB Oxymetazoline HCl (Oxymetazoline 0.05% 30 Ml Btl) Confirm Administered Dose 150 sprays .ROUTE .STK-MED ONE Stop: 07/21/24 03:05 Last Admin: 07/21/24 03:20 Dose: 3 sprays Documented By: IVANNA Tranexamic Acid (Txa 10% Non-Iv Routes 100 Mg/Ml Vial) Confirm Administered Dose 1,000 mg .ROUTE .STK-MED ONE Stop: 07/21/24 03:12 Last Admin: 07/21/24 03:20 Dose: 100 mg Documented By: IVANNA Tranexamic Acid (Txa 10% Non-Iv Routes 100 Mg/Ml Vial) 1,000 mg TOP ONE ONE Stop: 07/21/24 03:31 Last Admin: 07/21/24 03:33 Dose: Not Given Documented By: IVANNA Discharge Plan Visit Data Chief Complaint: Nose Bleed (Major) Stated Complaint: SEVERE NOSE BLEED ED Provider: iLlia Dubon Discharge Problem: Acute posterior epistaxis Forms Stand Alone Forms: [facility] Prescriptions Prescriptions: No Action omeprazole 20 mg capsule,delayed release(DR/EC) 20 mg PO DAILY celecoxib [Celebrex] 50 mg capsule 50 mg PO BID PRN (Reason: pain) Eliquis 5 mg tablet 10 mg PO BID atorvastatin 20 mg tablet 20 mg PO DAILY Referrals Referrals: Cuca Calderon DO [Primary Care Provider] -
--- NOTE | 2024-07-21 06:27 | History & Physical Report ---
Date of Service July 21, 2024 Assessment & Plan (1) Epistaxis: Plan: Spontaneous epistaxis Status post posterior packing at the ER. Recent Eliquis Rx for RLE Patient currently hemodynamically stable. 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 provider to contact patient's oncologist regarding additional recommendations. (Reattempt anticoagulation versus IVC filter placement if anticoagulation deemed unsafe given severe epistaxis after first few doses of Eliquis at home.) ENT consult re: epistaxis (Patient already seen at the ER by Dr. Tyler. N.p.o. status recommended for possible additional intervention as per ED provider.) Initiate lisinopril for BP control Follow H&H, transfuse PRBC if hemoglobin less than 7 and or for symptomatic anemia. DVT prophylaxis. SCDs on LLE, no SCDs on RLE given recent DVT Full code Patient requesting updates providers. Mr. Niki Hoyos, contact #[phone]. Text document was generated using [employer] voice recognition software. It may contain grammatical or spelling errors. Kindly contact undersigned for clarification of any documentation item in question. History of Present Illness Chief Complaint: Epistaxis Primary Care Provider: Cuca Calderon DO History obtained from patient, family, and records. 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 Last confinement 2015 for primary RECREATIONAL SPECIALIST lymphoma status post surgery. Patient seen at PCPs office 3 days ago for right leg swelling without recollection of injury. Denies chest pain, SOB. Outpatient RLE Dopplers showed Right posterior peroneal vein occlusive DVT. No prior history of blood clots as per patient. Patient started on Eliquis by PCP. Patient woke up this morning with epistaxis and a blood soaked pillow. No headache, no chest pain, no SOB. Highest SBP of 160s documented at the ER. Posterior packing done at the ER by ENT specialist. 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 Allergies Allergy/AdvReac Type Severity Reaction Status Date / Time oxycodone AdvReac Mild VOMITING - Verified 06/23/24 09:42 Percocet Home Medications Medication Instructions Recorded Confirmed Type omeprazole 20 mg capsule,delayed 20 mg PO DAILY 01/17/22 07/21/24 History release celecoxib 50 mg capsule (Celebrex) 50 mg PO BID PRN pain 06/12/22 07/21/24 History apixaban 5 mg tablet (Eliquis) 10 mg PO BID 07/21/24 07/21/24 History atorvastatin 20 mg tablet 20 mg PO DAILY 07/21/24 07/21/24 History Past Med/Surg History Problem List (Updated 07/21/24 @ 08:38 by Denny Valencia MD) Epistaxis Acute posterior epistaxis (Acute) Rotator cuff tear, right Fracture of base of fifth metatarsal bone Fractured lateral malleolus Trochanteric bursitis, right hip Rotator cuff tear, left Hypertension (Chronic) Hyperlipidemia (Chronic) Anemia (Acute) RECREATIONAL 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 palpebral conjunctivae, no ptosis, packing over left nasal cavity, dried blood over face, blood noted per [place] NECK : Supple, no tenderness CHEST : CTA, no tenderness HEART : Tachycardic, systolic murmur ABDOMEN: no distention, nontender EXTREMITIES : RLE swelling with minimal tenderness, no other conspicuous deformities noted NEUROLOGIC : Coherent, no facial asymmetry, no other gross focality Results & Data Results & Data Vital Signs (Past 12 Hours) Vital Signs Temp Pulse Pulse Resp BP BP Pulse Ox 07/21/24 06:00 103 H 19 138/107 H 96 07/21/24 04:30 89 16 169/99 H 97 07/21/24 04:00 84 17 147/112 H 96 07/21/24 03:33 100 H 16 149/101 H 95 07/21/24 02:53 36.9 C 123 H 18 135/87 96 O2 Del Method 07/21/24 06:00 Room Air 07/21/24 04:30 Room Air 07/21/24 04:00 07/21/24 03:33 Room Air 07/21/24 02:53 Room Air Laboratory Results Laboratory Results WBC 4.51 K/ul (4.8-10.8) L 07/21/24 03:18 RBC 3.93 M/uL (4.20-5.40) L 07/21/24 03:18 Hgb 12.3 g/dl (12.0-16.0) 07/21/24 03:18 Hct 37.4 % (37.0-47.0) 07/21/24 03:18 MCV 95.2 fL (80.0-100.0) 07/21/24 03:18 MCH 31.3 pg (25.0-34.0) 07/21/24 03:18 MCHC 32.9 g/dL (32.0-36.0) 07/21/24 03:18 RDW Std Deviation 47.8 fL (36.4-46.3) H 07/21/24 03:18 RDW Coeff of Pascual 13.5 % (11.5-14.5) 07/21/24 03:18 Plt Count 265 K/uL (130-400) 07/21/24 03:18 MPV 9.9 fL (9.4-12.4) 07/21/24 03:18 Immature Gran % (Auto) 0.4 % 07/21/24 03:18 Neut % (Auto) 55.0 % 07/21/24 03:18 Lymph % (Auto) 30.2 % 07/21/24 03:18 [place] % (Auto) 11.1 % 07/21/24 03:18 Eos % (Auto) 2.2 % 07/21/24 03:18 Baso % (Auto) 1.1 % 07/21/24 03:18 Neut # (Auto) 2.48 K/uL (1.40-6.50) 07/21/24 03:18 Lymph # (Auto) 1.36 K/uL (1.20-3.40) 07/21/24 03:18 [place] # (Auto) 0.50 K/uL (0.11-0.59) 07/21/24 03:18 Eos # (Auto) 0.10 K/uL (0.00-0.50) 07/21/24 03:18 Baso # (Auto) 0.05 K/uL (0.00-0.20) 07/21/24 03:18 Immature Gran # (Auto) 0.02 K/uL (0.01-0.20) 07/21/24 03:18 Diagnostic Findings
[2024-07-21] MEDS: GELATIN SPONGE 12-7MM ONE (06:43)
[2024-07-21 06:45] LABS: BUN Creatinine Ratio 19.8 (10-20); Calcium 9.2 mg/dl (8.6-10.3); Magnesium 2.1 mg/dl (1.7-2.4)
[2024-07-21 06:58] LABS: Partial Thromboplastin Time 27 Seconds (21-31); Prothrombin Time 10.9 Seconds (9.0-12.0)
[2024-07-21] MEDS ORDERED: traMADol HCL 50 MG TABLET PO PRN (07:05)
[2024-07-21] MEDS ORDERED: PROMETHAZINE 6.25 MG/50.25 ML BAG IV PRN (07:05)
--- NOTE | 2024-07-21 07:33 | Hospitalist Progress Note ---
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 Spontaneous epistaxis RLE DVT Status post posterior packing at the ER. Recent Eliquis Rx for RLE DVT Patient hemodynamically stable. hgb drop from 12.3 to 11.2 HOLDING Eliquis ENT consulted, appreciate recs. Recommended/stated the following: -pt is s/p nasal exam under anesthesia, left nasal cautery and artery ligation Patient's oncologist Dr. Sekou Nash was contacted via [place] text for further recommendations for anticoagulation, currently awaiting response. (Reattempt anticoagulation versus IVC filter placement if anticoagulation deemed unsafe given severe epistaxis after first few doses of Eliquis at home.) Continue to monitor H&H. Follow H&H, transfuse PRBC if hemoglobin less than 7 and or for symptomatic anemia. Situational hypertension Likely chronic BP elevation given LVH on recent outpatient TTE Stared on lisinopril Continue to monitor Continue other home meds as ordered. Diet: regular DVT prophylaxis. SCDs on LLE, no SCDs on RLE given recent DVT Full code Dispo: Home once medically stable Subjective Patient was seen multiple times during the day Initially in the a.m. at bedside, significant bleeding out of of nose into emesis bag She noted that this has been chronic since she came in Discussed with ENT surgeon via [place] text who advised that she will be taken to the OR for definitive management. Review of Systems Review of Systems: All systems reviewed & are unremarkable except as noted in Subjective Physical Exam Physical Exam: General: Alert, oriented. Psych: Appropriate mood and affect HEENT: NC/AT, actively spitting out blood CV: RRR, Normal s1, s2 Resp: Breath sounds clear bilaterally, no increased effort of breathing Abdomen: Soft, nontender Extremities: No edema in lower extremities bilaterally. Results & Data Results & Data Vital Signs (Past 12 Hours) Vital Signs Temp Pulse Pulse Resp BP BP Pulse Ox 07/21/24 06:00 103 H 19 138/107 H 96 07/21/24 04:30 89 16 169/99 H 97 07/21/24 04:00 84 17 147/112 H 96 07/21/24 03:33 100 H 16 149/101 H 95 07/21/24 02:53 36.9 C 123 H 18 135/87 96 O2 Del Method 07/21/24 06:00 Room Air 07/21/24 04:30 Room Air 07/21/24 04:00 07/21/24 03:33 Room Air 07/21/24 02:53 Room Air
[2024-07-21] MEDS: lisinopril 2.5 MG TAB PO SCH (09:22)
[2024-07-21] MEDS: PANTOprazole 40 MG TAB PO SCH (09:23)
[2024-07-21] MEDS: ATORVASTATIN 20 MG TAB PO SCH (09:23)
[2024-07-21] MEDS: SODIUM CHLORIDE 0.45 % 1,000 ML IV ONE (09:27)
--- NOTE | 2024-07-21 10:01 | History & Physical Report ---
Date of Service July 21, 2024 Assessment & Plan (1) Epistaxis: Plan: Patient admitted and booked for surgery to examine the nose and stop the bleeding. Admission and Anticipated Discharge Date Admission Date: July 21, 2024 History of Present Illness Chief Complaint: Patient is a 73 year old woman with a history of left sided epistaxis. Patient was recently diagnosed with DVT on the right side and was started on Eliquis. She was instructed to take 4 5 mg tablets twice a day. Prior to this she did had a history of easy bruising. She was treated for a brain cancer 9 years ago. Other than the eliquis she takes no meds except atorvastatin Primary Care Provider: Cuca Calderon DO Allergies Allergy/AdvReac Type Severity Reaction Status Date / Time oxycodone AdvReac Mild VOMITING - Verified 06/23/24 09:42 Percocet Home Medications Medication Instructions Recorded Confirmed Type omeprazole 20 mg capsule,delayed 20 mg PO DAILY 01/17/22 07/21/24 History release celecoxib 50 mg capsule (Celebrex) 50 mg PO BID PRN pain 06/12/22 07/21/24 History apixaban 5 mg tablet (Eliquis) 10 mg PO BID 07/21/24 07/21/24 History atorvastatin 20 mg tablet 20 mg PO DAILY 07/21/24 07/21/24 History Past Med/Surg History Problem List (Updated 07/21/24 @ 08:38 by Denny Valencia MD) Epistaxis Acute posterior epistaxis (Acute) Rotator cuff tear, right Fracture of base of fifth metatarsal bone Fractured lateral malleolus Trochanteric bursitis, right hip Rotator cuff tear, left Hypertension (Chronic) Hyperlipidemia (Chronic) Anemia (Acute) 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 I cauterized it with electrocautery but she still had bleeding from the midpt on the septum superiorly I infiltrated the septum with lidocaine with epinephrine. Using electrocautery I cauterized the septum on the left side anteriorly. There was still bleeding posteriorly so I place a vaseline gauze packing in the nose Results & Data Results & Data Vital Signs (Past 12 Hours) Vital Signs Temp Pulse Pulse Resp BP BP Pulse Ox 07/21/24 09:15 107 H 07/21/24 08:23 36.8 C 117 H 18 99 07/21/24 08:23 07/21/24 07:57 07/21/24 07:53 104 H 20 146/95 H 97 07/21/24 06:00 103 H 19 138/107 H 96 07/21/24 04:30 89 16 169/99 H 97 07/21/24 04:00 84 17 147/112 H 96 07/21/24 03:33 100 H 16 149/101 H 95 07/21/24 02:53 36.9 C 123 H 18 135/87 96 Pulse Ox O2 Del Method O2 Del Method 07/21/24 09:15 07/21/24 08:23 Room Air 07/21/24 08:23 99 Room Air 07/21/24 07:57 Room Air 07/21/24 07:53 07/21/24 06:00 Room Air 07/21/24 04:30 Room Air 07/21/24 04:00 07/21/24 03:33 Room Air 07/21/24 02:53 Room Air Code Status & VTE Plan VTE Prophylaxis Plan VTE Prophylaxis will be ordered: Yes PG Care Time/CCT Total # of Minutes Spent Total Time Spent with Patient: Total time spent is greater than 50% in coordination of care (as documented) at patient's floor/unit and/or counseling patient: [place] [address] INT INP/OBS CARE 2/55MIN Patient Type New Medical Decision Making Moderate Complexity Diagnoses Epistaxis R04.0
[2024-07-21 10:35] LABS: Hemoglobin 11.2 g/dl (12.0-16.0)
--- NOTE | 2024-07-21 12:56 | Anesthesiology Consultation ---
Date of Service July 21, 2024 Assessment & Plan Chart Review Chart Review: Acceptable Risk for Surgery and Patient NOT seen in Pre Admission Testing Consults Requested none ASA ASA4 Proposed Anesthesia Anesthesia Type: General Risk / Benefits Reviewed With: PT / POA / Parent / Guardian, Accepts Plan and Informed Consent Obtained History Surgery Operation Date: 07/21/24 12:20 Proposed Procedures p Nasal Bleed Control - Piyush Tyler MD Height/Weight Height: 5 ft 6 in Weight: 69.6 kg Allergies Allergy/AdvReac Type Severity Reaction Status Date / Time oxycodone AdvReac Mild VOMITING - Verified 07/21/24 12:14 Percocet Medications Home Medications Medication Instructions Recorded Confirmed Last Taken omeprazole 20 mg capsule,delayed 20 mg PO DAILY 01/17/22 07/21/24 07/20/24 release celecoxib 50 mg capsule (Celebrex) 50 mg PO BID PRN pain 06/12/22 07/21/24 Unknown apixaban 5 mg tablet (Eliquis) 10 mg PO BID 07/21/24 07/21/24 07/20/24 atorvastatin 20 mg tablet 20 mg PO DAILY 07/21/24 07/21/24 07/20/24 Active Medications Generic Name Dose Route Start Last Admin Trade Name Freq PRN Reason Stop Dose Admin Atorvastatin Calcium 20 mg 07/21/24 09:00 07/21/24 09:23 Atorvastatin 20 Mg Tab PO 08/20/24 08:59 20 mg DAILY BHARGAV Administration Sodium Chloride 1,000 mls @ 50 mls/hr 07/21/24 08:30 07/21/24 09:27 1/2 Nss IV 07/22/24 04:29 50 mls/hr .Q20H ONE Administration Lisinopril 2.5 mg 07/21/24 08:35 07/21/24 09:22 Lisinopril 2.5 Mg Tab PO 08/20/24 08:34 2.5 mg QAM BHARGAV Administration Pantoprazole Sodium 40 mg 07/21/24 09:00 07/21/24 09:23 Pantoprazole 40 Mg Tab PO 08/20/24 08:59 40 mg DAILY BHARGAV Administration Protocol NPO Date Last Intake of Fluids: 07/21/24 Time Last Intake of Fluids: 10:30 Last Intake of Fluids Comment: sip water w/ 2 pills Date Last Intake of Solids: 07/20/24 Time Last Intake of Solids: 19:00 Past Medical History 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 HTN HLD DVT on apixaban Exercise / Class Metabolic Activity III < 4 Walking/Shop/Light housework Past Anesthesia History No Hx of Anesthesia Complications and No Family Hx of Anesthesia Complications History of PONV No Hx of PONV and No Hx of Motion Sickness Social History Smoking Status: Never smoker Hx Alcohol Use: No Hx Substance Use: No Physical Exam Vital Signs Last Vital Signs Temp 36.6 C 07/21/24 11:56 Pulse 87 07/21/24 11:56 Resp 18 07/21/24 11:56 BP 147/86 H 07/21/24 11:56 Pulse Ox 97 07/21/24 11:56 O2 Del Method Room Air 07/21/24 11:56 Constitutional no acute distress ENMT Mouth: + dentition abnormality and + dentures Thyromental Distance: < 3.5 Finger Breadths Mallampati Class: II Neck normal visual inspection and trachea midline; neck extension not limited Respiratory normal respiratory effort Auscultation: lungs clear to auscultation bilaterally Cardiovascular Rate/Rhythm: regular rate and regular rhythm Heart Sounds: + murmur (? sarah of @ RUSB 2-3/6) Vessels: no carotid bruit Musculoskeletal Spine: normal cervical ROM and no pain with cervical ROM Extremities: extremities normal to inspection; full ROM of extremities Neurologic moves all extremities Motor/Sensory: no sensory deficit Psychiatric Orientation: alert and oriented x 3 Testing Laboratory Results 07/21/24 10:05 07/21/24 03:18 PT 10.9 Seconds (9.0-12.0) 07/21/24 03:18 INR 1.0 (0.9-1.1) 07/21/24 03:18 APTT 27 Seconds (21-31) 07/21/24 03:18 Blood Type O Positive 07/21/24 03:18 Antibody Screen NEGATIVE 07/21/24 03:18
[2024-07-21] MEDS ORDERED: PROMETHAZINE HCL 6.25 MG in SODIUM CHLORIDE 0.9% 50 ML IV PRN (12:58)
[2024-07-21] MEDS ORDERED: fentaNYL citrate PF 100 MCG/2 ML VIAL IV PRN (12:58)
[2024-07-21] MEDS ORDERED: ePHEDrine sulfate 50 MG/ML AMP IV PRN (12:58)
[2024-07-21] MEDS ORDERED: ATROPINE SULFATE 0.1 MG/ML 10ML SYR IV PRN (12:58)
[2024-07-21] MEDS ORDERED: NALOXONE HCL 0.4 MG/1 ML VIAL/CARP IV PRN (12:58)
[2024-07-21] MEDS ORDERED: ONDANSETRON INJ 2 MG/ML 2 ML VIAL IV PRN (12:58)
[2024-07-21] MEDS ORDERED: FLUMAZENIL 0.1 MG/1 ML 10 ML VIAL IV PRN (12:58)
[2024-07-21] MEDS ORDERED: fentaNYL citrate PF 100 MCG/2 ML VIAL ONE (13:01)
[2024-07-21] MEDS ORDERED: PROPOFOL IV EMULSION 10 MG/ML 20 ML VIAL IV ONE (13:04)
[2024-07-21] MEDS ORDERED: MIDAZOLAM HCL 1 MG/ML 2ML VIAL ONE (13:05)
[2024-07-21] MEDS ORDERED: SUCCINYLCHOLINE CHLORIDE 20 MG/ML 10 ML VIAL IV ONE (13:06)
[2024-07-21] MEDS: EPINEPHrine HCL INJ 10 MG/10 ML VIAL ONE (13:30)
[2024-07-21] MEDS: GELATIN SPONGE SZ 100 ONE (13:35)
[2024-07-21] MEDS ORDERED: PHENYLEPHRINE 100MCG/ML 5ML SYR ONE (13:45)
[2024-07-21] MEDS ORDERED: PHENYLEPHRINE HCL 10 MG/ML VIAL ONE (13:46)
[2024-07-21] MEDS: LIDOCAINE 1%/EPINEPHRINE 1:100,000 50 ML VIAL ONE ×2 (14:18→14:20)
[2024-07-21] MEDS: MUPIROCIN 2% OINT 22 GM TUBE ONE (14:21)
--- NOTE | 2024-07-21 15:02 | Anesthesiology Progress Note ---
Date of Service July 21, 2024 Anesthesia Post Procedure Vital Signs Vital Signs: Temp Pulse Pulse Resp BP BP Pulse Ox 07/21/24 14:45 36.4 C L 80 20 153/90 H 95 07/21/24 14:40 83 20 169/87 H 95 07/21/24 14:30 79 13 166/96 H 100 07/21/24 14:20 77 15 161/98 H 100 07/21/24 14:12 36.3 C L 79 12 163/99 H 100 07/21/24 11:56 36.6 C 87 18 147/86 H 97 07/21/24 09:15 107 H 07/21/24 08:23 36.8 C 117 H 18 99 07/21/24 08:23 07/21/24 07:57 07/21/24 07:53 104 H 20 146/95 H 97 07/21/24 06:00 103 H 19 138/107 H 96 07/21/24 04:30 89 16 169/99 H 97 07/21/24 04:00 84 17 147/112 H 96 07/21/24 03:33 100 H 16 149/101 H 95 07/21/24 02:53 36.9 C 123 H 18 135/87 96 Pulse Ox O2 Del Method O2 Del Method O2 Flow Rate 07/21/24 14:45 Room Air 0 07/21/24 14:40 Room Air 0 07/21/24 14:30 Oxymask 4 07/21/24 14:20 Oxymask 8 07/21/24 14:12 Oxymask 8 07/21/24 11:56 Room Air 07/21/24 09:15 07/21/24 08:23 Room Air 07/21/24 08:23 99 Room Air 07/21/24 07:57 Room Air 07/21/24 07:53 07/21/24 06:00 Room Air 07/21/24 04:30 Room Air 07/21/24 04:00 07/21/24 03:33 Room Air 07/21/24 02:53 Room Air Transfer of Care Handoff Completed per policy Notes Mental Status: alert / awake / arousable Patient Amnestic to Procedure: Yes Nausea / Vomiting: adequately controlled Pain: adequately controlled Airway Patency, RR, SpO2: stable & adequate BP & HR: stable & adequate Hydration State: stable & adequate Anesthetic Complications: no major complications apparent
--- NOTE | 2024-07-21 16:06 | Post Operative Brief Note ---
PG Immediate Post Op with CF Date of Surgery July 21, 2024 Pre & Post Diagnosis Operation Date: 07/21/24 12:20 Pre-Op Diagnosis: EPISTAXIS Post-Op Diagnosis: EPISTAXIS I identified the patient and participated in the time-out.: Yes Procedure Operation Date: 07/21/24 12:20 Actual Procedures p Nasel Exam under anesthsia, Left nasal cautery, artery ligation.(Left) - Piyush Tyler MD Surgeon Piyush Tyler MD Copy Cutter None Estimated Blood Loss 0 Findings Consistent with Post-Op Diagnosis Areas where there was evidence of bleeding posteriorly on that left side Specimens Specimen Description: no specimen per surgeon
--- NOTE | 2024-07-21 16:07 | Operative Report ---
PG Post Operative Report Pre & Post Diagnosis Operation Date: 07/21/24 12:20 Pre-Op Diagnosis: EPISTAXIS Post-Op Diagnosis: EPISTAXIS I identified the patient and participated in the time-out.: Yes Procedure Operation Date: 07/21/24 12:20 Actual Procedures p Nasel Exam under anesthsia, Left nasal cautery, artery ligation.(Left) - Piyush Tyler MD Surgeon Piyush Tyler MD Pocket Creaser None Estimated Blood Loss 0 Findings Consistent with Post-Op Diagnosis Specimens None Complications None Description of Procedure Under general anesthesia with the patient intubated the patient draped in usual manner. I used pledgets of adrenaline 1 and 1000 and infiltrated with lidocaine with epinephrine. Using suction cautery I cauterized areas inside the nose where there was evidence of bleeding both anteriorly and posteriorly and around the sphenopalatine artery where it comes into the nose. Very little bleeding. Patient Toller procedure well and transferred to the recovery room in excellent condition I attest to the content of the Intraoperative Record and any orders documented therein. Any exceptions are noted below.
[2024-07-21 21:38] LABS: Hematocrit (blood only) 29.9 % (37.0-47.0); Hemoglobin 9.8 g/dl (12.0-16.0)
--- NOTE | 2024-07-22 00:53 | Ultrasound Report ---
Exam(s): US VENOUS RIGHT LOWER EXTREMITY EXAM: US Duplex Right Lower Extremity Veins CLINICAL HISTORY: Reason for exam: r/o progression of the blood clot per heme. TECHNIQUE: Real-time duplex ultrasound scan of the right lower extremity veins integrating B-mode two-dimensional vascular structure, Doppler spectral analysis, color flow Doppler imaging and compression. COMPARISON: No relevant prior studies available. FINDINGS: Deep veins: There is deep venous thrombosis in the peroneal vein. No DVT in the visualized common femoral, femoral, proximal deep femoral or popliteal veins. These veins demonstrate normal color flow, are normally compressible, with normal phasic flow and/or augmentation response. Superficial veins: No superficial thrombus in the visualized portions of the great saphenous vein. Soft tissues: No acute findings. No popliteal cyst. IMPRESSION: There is deep venous thrombosis in the right peroneal vein. Communications: Call Doctor DVT acute, progressing Electronically signed by: Javy Garcia MD 07/22/24 00:52 AM
[2024-07-22 07:29] VITALS: RESP 16
[2024-07-22 10:12] LABS: Basophils # (auto) 0.04 K/uL (0.00-0.20); Basophils % (auto) 0.6 %; Eosinophils # (auto) 0.06 K/uL (0.00-0.50); Eosinophils % (auto) 0.8 %; Hematocrit (blood only) 29.2 % (37.0-47.0); Hemoglobin 9.6 g/dl (12.0-16.0); Immature Granulocytes # (auto) 0.03 K/uL (0.01-0.20); Immature Granulocytes % (auto) 0.4 %; Lymphocytes # (auto) 0.99 K/uL (1.20-3.40); Lymphocytes % (auto) 13.9 %; Mean Corpuscular Hemoglobin 31.3 pg (25.0-34.0); Mean Corpuscular Hgb Conc 32.9 g/dL (32.0-36.0); Mean Corpuscular Volume 95.1 fL (80.0-100.0); Mean Platelet Volume 10.2 fL (9.4-12.4); Monocytes # (auto) 0.73 K/uL (0.11-0.59); Monocytes % (auto) 10.3 %; Neutrophils # (auto) 5.27 K/uL (1.40-6.50); Platelet Count 225 K/uL (130-400); RDW Coefficient of Variation 13.7 % (11.5-14.5); RDW Standard Deviation 48.2 fL (36.4-46.3); Red Blood Count 3.07 M/uL (4.20-5.40); White Blood Count 7.12 K/ul (4.8-10.8)
[2024-07-22 10:25] LABS: BUN Creatinine Ratio 37.3 (10-20); Calcium 8.2 mg/dl (8.6-10.3); Creatinine Clr Calc Pharmacy 55.7 ml/min; Potassium 3.7 mmol/L (3.5-5.1)
--- OUTSIDE RECORDS SUMMARY | 2024-07-22 11:05 | External Medical Summary | Summary of Care ---
Author Name Unknown Organization [facility] Address [address] [place] [address] Phone [phone] Care Team Providers Care Mileage Clerk Name Role Phone Cuca Calderon DO Primary Care Provider [phone] Encounter Details Date Type Department Care Team (Late st Contact Info) Description 07/18/2024 Telephone Family Practice [address], [place] [address] [place] [address] Cuca Calderon DO [address] [place] [address] Allergies Active Allergy Reactions Criticality Noted Date Comments Oxycodone Medium 03/12/2023 vomiting documented as of this encounter (statuses as of 07/21/2024) Medications Calcium 1000 + D 1000-20 MG-MCG [...] 2 07/07/2024 12:41 PM EST 4 Active Apixaban 5 MG Oral Tablet (Eliquis) Take 2 tablets by mouth twice daily for 7 days and then 1 tablet by mouth twice daily 88 Tablet 4 Active documented as of this encounter (statuses as of 07/21/2024) Active Problems Problem Noted Date Diagnosed Date Gastroesophageal reflux disease without esophagi tis 05/08/2023 Overweight (BMI 25.0-29.9) 05/08/2023 Prediabetes 03/12/2023 Age-related osteoporosis wit hout current pathological fracture 03/10/2022 Generalized osteoarthritis 09/08/2021 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 Dyslipidemia documented as of this encounter (statuses as of 07/21/2024) Resolved Problems Problem Noted Date Diagnosed Date Resolved Date Malignant neoplasm of brain 09/11/2022 05/08/2023 Leg edema, right 09/08/2021 05/08/2023 Nontraumatic tear of left rotator cuff 09/08/2021 05/08/2023 Trochanteric bursitis of right hip 09/08/2021 05/08/2023 Encounter for antineoplastic chemotherapy 08/04/2016 05/08/2023 documented as of this encounter (statuses as of 07/21/2024) Immunizations Name Administration Dates Next Due COVID-19 [...] encounter Miscellaneous Notes * Telephone Encounter - Cuca Calderon DO - 07/21/2024 9:45 AM EST Pt in ED with nosebleed. Will see what is decided regarding anticoagulation. * Telephone Encounter - Cuca Calderon DO - 07/18/2024 4:54 PM EST Spoke with pt. Relayed results of US. Will start Eliquis. Free copay card faxed. She was advised not to take Celebrex while on this. Will work next week to get her coverage for several months. documented in this encounter Plan of Treatment Upcoming Encounters Date Type Department Care Team (Late st Contact Info) Description 11/21/2024 10:00 AM EDT Office Visit Family Practice [address], [place] [address] [place] [address] Cuca Calderon DO [address] [place] [address] 05/13/2025 1:30 PM EDT Office Visit Hematology/Oncology State Denia Pritchett [address] [facility] [place], [place] [address] Sekou Nash MD [address] [facility] [place] [address] Scheduled Procedures Name Priority Associated Diagnoses Date/Ti [...] 03/18/2024, 080 08/2022, 07/14/2020 Mammogram 03/31/2025 03/31/2024, 03/07, 02/19/2023, Additional history exists DXA Scan 03/18/2026 03/18/2024, 04/0 01/2022, 11/09/2021 Colonoscopy 11/23/2026 11/23/2021, 11/05, 06/22/2008 Colorectal Cancer Screening 11/23/2026 Lipid Panel 03/18/2029 03/18/2024, 020 08/2022, 03/06/2022, Additional history exists DTap/Tdap Vaccines (2 - Td or Tdap) 09/11/2032 09/11/2022 RETIRED - COLONOSCOPY-EVERY 5 YRS AGES 18-100 Discontinued 11/23/2021, 11/23/2021, 06/22/2008 Pneumococcal Vaccine: 65+ Years Completed 09/11/2022 Zoster Vaccines Completed 01/03/2023, 09/21/2022 VITAMIN D LEVEL ONCE IN A LIFETIME-USE SMARTSET# [id number] Completed 03/18/2024, 09/06/2022 Influenza Vaccine (FLU shot) [...] Not on filedocumented as of this encounter Care Teams Mileage Clerk Relationship Specialty Start Date End Date Cuca Calderon DO [address] [place] [address] PCP - General Family Medicine 03/15/24 documented as of this encounter
[2024-07-22 12:00] VITALS: O2SAT 95
--- NOTE | 2024-07-22 13:10 | Hospitalist Progress Note ---
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 Spontaneous epistaxis RLE DVT Status post posterior packing at the ER. Recent Eliquis Rx for RLE DVT Patient hemodynamically stable. hgb drop from 12.3 to 11.2 HOLDING Eliquis ENT consulted, appreciate recs. Recommended/stated the following: -pt is s/p nasal exam under anesthesia, left nasal cautery and artery ligation Patient's oncologist Dr. Sekou Nash was contacted via [place] text for further recommendations for anticoagulation, currently awaiting response. (Reattempt anticoagulation versus IVC filter placement if anticoagulation deemed unsafe given severe epistaxis after first few doses of Eliquis at home.) Continue to monitor H&H. Follow H&H, transfuse PRBC if hemoglobin less than 7 and or for symptomatic anemia. Situational hypertension Likely chronic BP elevation given LVH on recent outpatient TTE Stared on lisinopril Continue to monitor Continue other home meds as ordered. Diet: regular DVT prophylaxis. SCDs on LLE, no SCDs on RLE given recent DVT Full code Dispo: Home once medically stable Admission and Anticipated Discharge Date Admission Date: July 21, 2024 Physical Exam Physical Exam: General: Alert, oriented. Psych: Appropriate mood and affect HEENT: NC/AT, actively spitting out blood CV: RRR, Normal s1, s2 Resp: Breath sounds clear bilaterally, no increased effort of breathing Abdomen: Soft, nontender Extremities: No edema in lower extremities bilaterally. Results & Data Results & Data Vital Signs (Past 12 Hours) Vital Signs Temp Pulse Pulse Pulse Resp BP Pulse Ox 07/22/24 11:59 36.8 C 104 H 16 107/67 95 07/22/24 07:28 36.7 C 16 118/72 96 07/22/24 05:44 81 07/22/24 04:30 36.6 C 98 H 18 110/70 95 O2 Del Method 07/22/24 11:59 Room Air 07/22/24 07:28 Room Air 07/22/24 05:44 07/22/24 04:30 Room Air
[2024-07-22] MEDS: ACETAMINOPHEN 325 MG TAB PO PRN (13:55)
[2024-07-22 16:10] VITALS: BP 105/56; TEMP 97.5
--- NOTE | 2024-07-22 16:50 | Discharge Summary ---
Discharge Summary Date of Service July 22, 2024 Principal Dx & Hospital Course #1 = Principal Diagnosis (1) Epistaxis: Plan Pt is a 73yoF with PMHx significant for TAR CHASER lymphoma status post surgery/chemoradiation, mild MR, recent RLE DVT on Eliquis, GERD, prediabetes, past tobacco abuse presenting with a persistent nose bleed. Spontaneous epistaxis RLE DVT Status post posterior packing at the ER. Recent Eliquis Rx for RLE DVT at 10mg BID for the past three days, pt also taking celebrex Patient hemodynamically stable. hgb drop from 12.3 to 11.2 to 9.6 on discharge Held Eliquis ENT consulted, appreciate recs. Recommended/stated the following: -pt is s/p nasal exam under anesthesia, left nasal cautery and artery ligation Venous doppler US showing persistent DVT in R peroneal vein Patient's oncologist Dr. Sekou Nash was contacted via [place] text for further recommendations for anticoagulation, and case discussed via telephone. -Coal Briquette Machine Operator Dr Sekou Nash stated the following: Continue with Eliquis 2.5mg BID after discharge Pt agreeable and notes she is able to cut the pills she has at home in half, notes they are very expensive. Close PCP follow up after discharge for continued H/H monitoring as well as monitoring of symptoms. Situational hypertension Likely chronic BP elevation given LVH on recent outpatient TTE Started on lisinopril Continue to monitor Continue other home meds as ordered. Notes For Next Care Provider Please closely monitor hemoglobin after discharge Medication Changes From Visit Per Coal Briquette Machine Operator Dr Sekou Nash: Eliquis 2.5mg BID STOP home celebrex as with Eliquis can increase risk of bleeding. Tylenol prn instead Admission HPI Per Admitting Provider History obtained from patient, family, and records. Medical history significant for TAR CHASER lymphoma status post surgery/chemoradiation, mild MR, recent RLE DVT on Eliquis, GERD, prediabetes, past tobacco abuse. Last confinement 2015 for primary TAR CHASER lymphoma status post surgery. Patient seen at PCPs office 3 days ago for right leg swelling without recollection of injury. Denies chest pain, SOB. Outpatient RLE Dopplers showed Right posterior peroneal vein occlusive DVT. No prior history of blood clots as per patient. Patient started on Eliquis by PCP. Patient woke up this morning with epistaxis and a blood soaked pillow. No headache, no chest pain, no SOB. Highest SBP of 160s documented at the ER. Posterior packing done at the ER by ENT specialist. 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 No acute distress Skin: No noted rashes or bruises Psych: Appropriate mood and affect Neuro: No gross deficits HEENT: NC/AT CV: RRR, Normal s1, s2. No murmurs appreciated Resp: Breath sounds clear bilaterally, no increased effort of breathing. Abdomen:Soft, nontender, nondistended Extremities: No edema in lower extremities bilaterally. Updated Medication List Medication Instructions Recorded Confirmed Type omeprazole 20 mg capsule,delayed 20 mg PO DAILY 01/17/22 07/21/24 History release atorvastatin 20 mg tablet 20 mg PO DAILY 07/21/24 07/21/24 History apixaban 2.5 mg tablet (Eliquis) 2.5 mg PO BID #60 tabs 07/22/24 Rx Hospital Stay Data Consultations 07/21/24 06:05 ED Decision to Admit Stat 07/21/24 07:06 Consult Otolaryngology (Head and Neck) Routine Procedures Performed Operation Date: 07/21/24 12:20 Actual Procedures p Nasel Exam under anesthsia, Left nasal cautery, artery ligation.(Left) - Piyush Tyler MD Diagnostic Imagining Performed 07/21/24 19:07 US venous doppler LE RT Routine Venous Doppler Study 07/21/24 19:07 CR Exam(s): US VENOUS RIGHT LOWER EXTREMITY EXAM: US Duplex Right Lower Extremity Veins CLINICAL HISTORY: Reason for exam: r/o progression of the blood clot per heme. TECHNIQUE: Real-time duplex ultrasound scan of the right lower extremity veins integrating B-mode two-dimensional vascular structure, Doppler spectral analysis, color flow Doppler imaging and compression. COMPARISON: No relevant prior studies available. FINDINGS: Deep veins: There is deep venous thrombosis in the peroneal vein. No DVT in the visualized common femoral, femoral, proximal deep femoral or popliteal veins. These veins demonstrate normal color flow, are normally compressible, with normal phasic flow and/or augmentation response. Superficial veins: No superficial thrombus in the visualized portions of the great saphenous vein. Soft tissues: No acute findings. No popliteal cyst. IMPRESSION: There is deep venous thrombosis in the right peroneal vein. Communications: Call Doctor DVT acute, progressing Electronically signed by: Javy Garcia MD 07/22/24 00:52 AM Discharge Instructions Given to Patient (Per Discharging Provider) Jeanine You were admitted after a very severe nosebleed. Your bleeding was stopped after a procedure with the minister helper. As we discussed with your cloth shearing supervisor, he believes you will need to continue with treatment of your deep vein thrombosis. He advises that you continue with the Eliquis at the very reduced dose of 2.5 mg twice a day. You were agreeable to this. Please continue with the pills you have at home but cutting them in half. Please keep close follow up with your primary care provider after discharge for continued monitoring of your hemoglobin and symptoms after discharge. Please do not hesitate to come back to the emergency room if your symptoms worsen or return. It was a pleasure taking care of you while you were here. Total Time Total Time Spent Total Time Spent (In Minutes): 65
[2024-07-22 18:13] VITALS: PULSE 98
== END 2024-07-22 17:30 | disposition home or self-care (01) ==
LOC: 2N 02:52 → ED 02:52 → 2N 07:57